=== PATIENT | female | born 1965 | race Caucasian/White ===

== ENCOUNTER 2022-07-13 13:52 | Emergency (ER) | payer MEDICAID, SELFPAY ==
--- NOTE | ~2022-07-13 | XR_ITS ---
EXAMINATION: XR CHEST CLINICAL INFORMATION: SOB and cough COMPARISON: None available. TECHNIQUE: 2 views of the chest were obtained. FINDINGS: No significant abnormality is noted involving the heart, lungs, mediastinum, bony thorax or soft tissues. XR/XR chest 2V IMPRESSION: Unremarkable examination.
[2022-07-13 14:16] VITALS: BP 140/95; PULSE 106; RESP 19; TEMP 36.6; O2SAT 97; BMI 42.3
--- NOTE | 2022-07-13 14:17 | ED_ITS ---
HPI - SOB/Dyspnea General Chief Complaint: Upper Respiratory Symptoms <SHEILA Dorsey - Last Filed: 07/13/22 14:20> Stated Complaint: Cough/SOB <SHEILA Dorsey - Last Filed: 07/13/22 14:20> Time Seen by Provider: 07/13/22 15:12 <SHEILA Dorsey - Last Filed: 07/13/22 14:20> Source: patient and commissioning editor <Jodie Zamudio NP - Last Filed: 07/13/22 19:06> Mode of arrival: ambulatory <Jodie Zamudio NP - Last Filed: 07/13/22 19:06> Limitations: language barrier <Jodie Zamudio NP - Last Filed: 07/13/22 19:06> History of Present Illness HPI Narrative: 57-year-old female with a history of asthma who presents to the ER with 2 weeks of increasing cough, wheezing, shortness of breath despite taking 4 days of prednisone, using Flovent b.i.d., ProAir p.r.n., albuterol nebulizer. Patient denies any fevers, runny nose, sore throat, chest pain. No leg swelling or leg pain. Patient moved here from [place] 2 months ago and does not have a primary care doctor here. Patient denies any previous history of hospitalizations or admissions for asthma <Jodie Zamudio NP - Last Filed: 07/13/22 19:06> Related Data Home Medications: Previous Rx's Medication Instructions Recorded prednisone 20 mg tablet 40 mg PO DAILY #8 tabs 07/13/22 <SHEILA Dorsey - Last Filed: 07/13/22 14:20> Allergies/Adverse Reactions: Allergies Allergy/AdvReac Type Severity Reaction Status Date / Time No Known Allergies Allergy Verified 07/13/22 14:15 [No Known Allergies*] <SHEILA Dorsey - Last Filed: 07/13/22 14:20> Review of Systems Review of Systems: Yes all other systems are reviewed and are negative <DARÍO Godoy Last Filed: 07/13/22 19:06> Constitutional: Constitutional: Reports no additional constitutional complaints, Denies body ache(s), Denies chills, Denies fever(s), Denies headache(s) and Denies weakness <Jodie Zamudio POLITICAL RESEARCH SCIENTIST - Last Filed: 07/13/22 19:06> Eyes: Eyes: Reports no additional eye complaints and Denies change in vision <Jodie Zamudio POLITICAL RESEARCH SCIENTIST - Last Filed: 07/13/22 19:06> ENT: Reports system reviewed and no additional complaints, except as docume nted, Denies dizziness, Denies headache(s), Denies nasal congestion, Denies nasal discharge and Denies neck pain <Jodie Zamudio POLITICAL RESEARCH SCIENTIST - Last Filed: 07/13/22 19:06> Cardiovascular: Cardiovascular: Reports no additional cardiovascular complaints, Denies chest pain, Denies leg edema and Reports dyspnea <Jodie Zamudio POLITICAL RESEARCH SCIENTIST - Last Filed: 07/13/22 19:06> Respiratory: Respiratory: Reports no additional respiratory complaints, Reports cough, Reports dyspnea and Reports wheezing <Jodie Zamudio POLITICAL RESEARCH SCIENTIST - Last Filed: 07/13/22 19:06> Gastrointestinal: Gastrointestinal: Reports no additional gastrointestinal complaints, Denies abdominal pain, Denies diarrhea, Denies nausea and Denies vomiting <Jodie Zamudio POLITICAL RESEARCH SCIENTIST - Last Filed: 07/13/22 19:06> Genitourinary: Genitourinary: Reports no additional female genitourinary complaints and Denies urinary incontinence <Jodie Zamudio POLITICAL RESEARCH SCIENTIST - Last Filed: 07/13/22 19:06> Musculoskeletal: Musculoskeletal: Reports no additional musculoskeletal complaints, Denies back pain, Denies arthralgias, Denies joint swelling, Denies neck pain, Denies numbness and Denies tingling <Jodie Zamudio POLITICAL RESEARCH SCIENTIST - Last Filed: 07/13/22 19:06> Integumentary/Breasts: Skin/Breast: Reports system reviewed and no additional complaints, except as docu and Denies rash <Jodie Zamudio POLITICAL RESEARCH SCIENTIST - Last Filed: 07/13/22 19:06> Neurologic: Reports system reviewed and no additional complaints, except as documented, Denies Abnormal speech present, Denies dizziness, Denies headache(s), Denies numbness, Denies tingling and Denies weakness <Jodie Zamudio NP - Last Filed: 07/13/22 19:06> Allergic/Immunologic: Allergic/Immunologic: Reports wheezing <Jodie Zamudio NP - Last Filed: 07/13/22 19:06> [facility] Past Medical History Attestation statement: The following information was validated with the patient. <Jodie Zamudio NP - Last Filed: 07/13/22 19:06> Source: old records reviewed and nursing notes reviewed <Jodie Zamudio NP - Last Filed: 07/13/22 19:06> Social History Social History: Social History Advance Directives: No Advance Directives Information Provided: Yes <SHEILA Dorsey - Last Filed: 07/13/22 14:20> Physical Exam Vital Signs: Vital Signs: Last Vital Signs Temp 98 F 07/13/22 14:16 Pulse 111 H 07/13/22 16:25 Resp 20 07/13/22 16:25 BP 140/95 H 07/13/22 14:16 Pulse Ox 97 07/13/22 14:16 O2 Del Method Room Air 07/13/22 14:16 BMI result Body Mass Index 42.3 <SHEILA Dorsey - Last Filed: 07/13/22 14:20> Vital Signs: Last Vital Signs Temp 98 F 07/13/22 14:16 Pulse 111 H 07/13/22 16:25 Resp 20 07/13/22 16:25 BP 140/95 H 07/13/22 14:16 Pulse Ox 97 07/13/22 14:16 O2 Del Method Room Air 07/13/22 14:16 BMI result Body Mass Index 42.3 <Jodie Zamudio NP - Last Filed: 07/13/22 19:06> Const: General: cooperative, healthy appearing, comfortable and no acute distress <Jodie Zamudio NP - Last Filed: 07/13/22 19:06> Orientation/consciousness: patient oriented x3 <Jodie Zamudio NP - Last Filed: 07/13/22 19:06> Limitations: no limitations <Jodie Zamudio NP - Last Filed: 07/13/22 19:06> HEENT: Head: Yes normal to inspection <Jodie Zamudio POLITICAL RESEARCH SCIENTIST - Last Filed: 07/13/22 19:06> Ears: hearing grossly normal bilaterally and TM's normal bilaterally <Jodie Zamudio POLITICAL RESEARCH SCIENTIST - Last Filed: 07/13/22 19:06> General nose exam: Normal external nose present <Jodie Zamudio POLITICAL RESEARCH SCIENTIST - Last Filed: 07/13/22 19:06> Face and sinus: Yes normal facial exam <Jodie Zamudio, POLITICAL RESEARCH SCIENTIST - Last Filed: 07/13/22 19:06> Mouth: Normal oral and palatal mucosa present <Jodie Zamudio POLITICAL RESEARCH SCIENTIST - Last Filed: 07/13/22 19:06> Throat: Yes posterior oropharynx normal, Yes tonsils normal and Yes uvula midline <Jodie Zamudio, POLITICAL RESEARCH SCIENTIST - Last Filed: 07/13/22 19:06> Eyes: General: appearance normal, both eyes and all related structures <Jodie Zamudio POLITICAL RESEARCH SCIENTIST - Last Filed: 07/13/22 19:06> Pupils: Equal, round and reactive pupils present <Jodie Zamudio POLITICAL RESEARCH SCIENTIST - Last Filed: 07/13/22 19:06> Neck: Neck: Yes normal visual inspection, Yes full ROM, Yes no lymphadenopathy and Yes no meningeal signs <Jodie Zamudio POLITICAL RESEARCH SCIENTIST - Last Filed: 07/13/22 19:06> Chest: Chest palpation & inspection: normal inspection of the chest <Jodie Zamudio POLITICAL RESEARCH SCIENTIST - Last Filed: 07/13/22 19:06> Resp: Other: Inspiratory and expiratory wheezing throughout <Jodie Zamudio POLITICAL RESEARCH SCIENTIST - Last Filed: 07/13/22 19:06> Effort & Inspection: normal respiratory effort <Jodie Zamudio POLITICAL RESEARCH SCIENTIST - Last Filed: 07/13/22 19:06> Cardio: Rate: regular rate <Jodie Zamudio POLITICAL RESEARCH SCIENTIST - Last Filed: 07/13/22 19:06> Rhythm: regular rhythm <Jodie Zamudio POLITICAL RESEARCH SCIENTIST - Last Filed: 07/13/22 19:06> Peripheral pulses: Peripheral pulses 2+ throughout <Jodieeileen Zamudio POLITICAL RESEARCH SCIENTIST - Last Filed: 07/13/22 19:06> GI: Inspection: Yes normal to inspection <Jodie Zamudio POLITICAL RESEARCH SCIENTIST - Last Filed: 07/13/22 19:06> Palpation (GI): Soft to palpation and nontender <Jodie Robb, POLITICAL RESEARCH SCIENTIST - Last Filed: 07/13/22 19:06> Auscultation: normal bowel sounds <Jodie Robb, POLITICAL RESEARCH SCIENTIST - Last Filed: 07/13/22 19:06> Back/Spine/Pelvis: Thoracic/Lumbar Spine: thoracic and lumbar spine normal to inspection <Jodie Robb, POLITICAL RESEARCH SCIENTIST - Last Filed: 07/13/22 19:06> Skin: General skin exam: no rashes or lesions noted <Jodie Robb, POLITICAL RESEARCH SCIENTIST - Last Filed: 07/13/22 19:06> Neuro: General: patient oriented x3, no meningeal signs, no focal motor deficits and normal sensation to monofilament <Jodieeileen Zamudio POLITICAL RESEARCH SCIENTIST - Last Filed: 07/13/22 19:06> Cranial nerves: Yes Equal, round and reactive pupils present <Jodie Robb, POLITICAL RESEARCH SCIENTIST - Last Filed: 07/13/22 19:06> Cognition (Neuro): normal cognition <Jodieeileen Zamudio, POLITICAL RESEARCH SCIENTIST - Last Filed: 07/13/22 19:06> Speech: No Abnormal speech present <Jodieeileen Zamudio, POLITICAL RESEARCH SCIENTIST - Last Filed: 07/13/22 19:06> Gait exam (Neuro): Normal gait present <Jodieeileen Zamudio, POLITICAL RESEARCH SCIENTIST - Last Filed: 07/13/22 19:06> Motor exam (neuro): 5/5 motor strength present throughout <Jodie Robb, POLITICAL RESEARCH SCIENTIST - Last Filed: 07/13/22 19:06> Extrem: General: Yes normal to inspection, Yes no pedal edema and Yes no calf tenderness <Jodie Robb, POLITICAL RESEARCH SCIENTIST - Last Filed: 07/13/22 19:06> Course Course Course Narrative: RME - 57 yo Trinid[place] speaking female with history of asthma who presents to the ER for evaluation of 8 days of SOB, wheezing, cough and chest pains. Chest pain is reproducible. Worse with coughing and deep breaths. Has been using her neb machine at home with no improvement. She was seen at the [facility] on 07/05 and prescribed prednisone. SpO2 98% in triage and speaking in complete sentences. She has expiratory wheezing throughout all lung duncan. Plan: CXR, EKG, COVID swab. breathing treatment, steroids and reassess. <SHEILA Dorsey - Last Filed: 07/13/22 14:20> Reevaluation(s) Reevaluation #1: 1715-blood sugar 412. No evidence of DKA. Patient takes metformin 1000 mg daily. Likely secondary to recent prednisone use. Will give patient IV fluids, 5 units of IV insulin and reassess <Jodie Zamudio NP - Last Filed: 07/13/22 19:06> Reevaluation #2: 1900-patient reports feeling improved. Sugar now 300s. Patient ambulated with pulse ox with greater 98%. Lungs are improved throughout. Patient has 60 mg of prednisone left at home. I recommend she take this tomorrow and then will give additional course of prednisone. Patient is on a 1000 mg of metformin daily. She may need a higher dose of metformin while she is taking the prednisone due to high hyperglycemia. Patient reports she has plenty of metformin at home and does not want a new prescription. She will increase her dose to 1000 mg twice daily for next 7 days and ankle back to her 1000 mg daily. This was all discussed with the nailhead operator. We reviewed worrisome signs and symptoms of when to return to the emergency room. Comfortable plan for discharge home. <Jodie Zamudio NP - Last Filed: 07/13/22 19:06> Medications Administered Discontinued Medications Generic Name Dose Route Start Last Admin Trade Name Freq PRN Reason Stop Dose Admin Albuterol Sulfate 10 mg 07/13/22 14:20 07/13/22 15:08 Albuterol Sulfate (0.083%) 2.5 Mg/3 Ml Vial.Neb INHALE 07/13/22 14:21 10 mg ONCE ONE Administration Albuterol Sulfate 5 mg 07/13/22 16:03 07/13/22 16:24 Albuterol Sulfate (0.083%) 2.5 Mg/3 Ml Vial.Neb INHALE 07/13/22 16:04 5 mg ONCE ONE Administration Magnesium Sulfate 2 gm in 50 mls @ 25 mls/hr 07/13/22 16:03 07/13/22 17:54 Magnesium Sulfate/H2o IV 07/13/22 18:02 Infused ONCE ONE Infusion Sodium Chloride 1,000 mls @ 999 mls/hr 07/13/22 16:45 07/13/22 17:53 Ns IV 07/13/22 17:45 Infused .Q1H1M STA Infusion Insulin Human Regular 5 unit 07/13/22 16:45 07/13/22 17:00 Insulin Regular, Human 100 Unit/Ml 3 Ml Vial IVPUSH 07/13/22 16:46 5 unit ONCE ONE Administration Methylprednisolone Sodium Succinate 125 mg 07/13/22 16:03 07/13/22 16:17 Methylprednisolone Sod Succ 125 Mg/2 Ml Vial IVPUSH 07/13/22 16:04 125 mg ONCE ONE Administration <SHEILA Dorsey - Last Filed: 07/13/22 14:20> Medications Administered Discontinued Medications Generic Name Dose Route Start Last Admin Trade Name Gunnarq PRN Reason Stop Dose Admin Albuterol Sulfate 10 mg 07/13/22 14:20 07/13/22 15:08 Albuterol Sulfate (0.083%) 2.5 Mg/3 Ml Vial.Neb INHALE 07/13/22 14:21 10 mg ONCE ONE Administration Albuterol Sulfate 5 mg 07/13/22 16:03 07/13/22 16:24 Albuterol Sulfate (0.083%) 2.5 Mg/3 Ml Vial.Neb INHALE 07/13/22 16:04 5 mg ONCE ONE Administration Magnesium Sulfate 2 gm in 50 mls @ 25 mls/hr 07/13/22 16:03 07/13/22 17:54 Magnesium Sulfate/H2o IV 07/13/22 18:02 Infused ONCE ONE Infusion Sodium Chloride 1,000 mls @ 999 mls/hr 07/13/22 16:45 07/13/22 17:53 Ns IV 07/13/22 17:45 Infused .Q1H1M STA Infusion Insulin Human Regular 5 unit 07/13/22 16:45 07/13/22 17:00 Insulin Regular, Human 100 Unit/Ml 3 Ml Vial IVPUSH 07/13/22 16:46 5 unit ONCE ONE Administration Methylprednisolone Sodium Succinate 125 mg 07/13/22 16:03 07/13/22 16:17 Methylprednisolone Sod Succ 125 Mg/2 Ml Vial IVPUSH 07/13/22 16:04 125 mg ONCE ONE Administration <Jodie Zamudio NP - Last Filed: 07/13/22 19:06> Medical Decision Making Medical Decision Making [facility] Narrative: 57-year-old female here with asthma symptoms the last 2 weeks despite being on prednisone, using Flovent, ProAir and albuterol nebulizer at home. Patient received 10 mg albuterol prior to my assess Patient with continued inspiratory and expiratory wheezing throughout w/ tachypnea but no hypoxia. Will give Solu-Medrol 125 mg, magnesium 2 g, repeat albuterol nebulizer <Jodie Zamudio NP - Last Filed: 07/13/22 19:06> Differential Diagnosis Differential Diagnoses: The differential diagnosis associated with the presentation includes <Jodie Zamudio NP - Last Filed: 07/13/22 19:06> Asthma exacerbation Less likely a PE, ACS, pneumonia <Jodie Zamudio NP - Last Filed: 07/13/22 19:06> Lab Data [facility] Lab Attestation statement: I reviewed the patient's lab results. <Jodie Zamudio NP - Last Filed: 07/13/22 19:06> Result Diagrams: 07/13/22 16:16 07/13/22 16:16 <SHEILA Dorsey - Last Filed: 07/13/22 14:20> Labs: Lab Results 07/13/22 07/13/22 07/13/22 Range/Units 14:27 16:16 16:16 WBC 9.2 (4.8-10.8) X10*3/uL RBC 5.21 (4.20-5.50) X10*6/uL Hgb 14.0 (12.0-16.0) g/dl Hct 43.3 (37.0-47.0) % MCV 83.1 (80.0-98.0) fL MCH 26.9 L (27.0-33.0) pg MCHC 32.3 (31.0-35.0) g/dl RDW 12.6 (11.0-16.0) % Plt Count 282 (160-400) X10*3/uL MPV 11.1 (9.4-12.3) fL Immature Gran % (Auto) 0.4 (0.0-0.4) % Neut % (Auto) 43.7 L (45-73) % Lymph % (Auto) 49.6 H (20-40) % [place] % (Auto) 5.2 (2-11) % Eos % (Auto) 0.8 (0-4) % Baso % (Auto) 0.3 (0-2) % Lymph # (Auto) 4.6 (1.2-4.9) X10*3/uL [place] # (Auto) 0.5 (0.1-1.2) X10*3/uL Eos # (Auto) 0.1 (0.0-0.4) X10*3/uL Baso # (Auto) 0.0 (0.0-0.2) X10*3/uL Abs Immat Gran (auto) 0.04 H (0.00-0.03) X10*3/uL Absolute Neuts (auto) 4.0 (2.0-8.3) x10*3/uL Absolute Nucleated RBC 0.000 (0.0-0.012) X10*3/uL Nucleated RBC % (auto) 0.0 (0.0-0.2) /100WBC Sodium 138 (135-145) mmol/L Potassium 3.3 (3.3-5.1) mmol/L Chloride 95 L (96-108) mmol/L Carbon Dioxide 25 (22-29) mmol/L Anion Gap 21 H (12-20) BUN 20 H (9-16) mg/dL Creatinine 1.12 (0.5-1.4) mg/dL Estim Creat Clear Calc 41.2 Estimated GFR 50 POC Glucose (60-115) mg/dL Random Glucose 412 H* (60-115) mg/dL Calcium 10.0 (8.4-10.2) mg/dL COVID-19 (GEOFF) Negative (Negative) COVID-19 Clin Com See Note 07/13/22 Range/Units 17:49 WBC (4.8-10.8) X10*3/uL RBC (4.20-5.50) X10*6/uL Hgb (12.0-16.0) g/dl Hct (37.0-47.0) % MCV (80.0-98.0) fL MCH (27.0-33.0) pg MCHC (31.0-35.0) g/dl RDW (11.0-16.0) % Plt Count (160-400) X10*3/uL MPV (9.4-12.3) fL Immature Gran % (Auto) (0.0-0.4) % Neut % (Auto) (45-73) % Lymph % (Auto) (20-40) % [place] % (Auto) (2-11) % Eos % (Auto) (0-4) % Baso % (Auto) (0-2) % Lymph # (Auto) (1.2-4.9) X10*3/uL [place] # (Auto) (0.1-1.2) X10*3/uL Eos # (Auto) (0.0-0.4) X10*3/uL Baso # (Auto) (0.0-0.2) X10*3/uL Abs Immat Gran (auto) (0.00-0.03) X10*3/uL Absolute Neuts (auto) (2.0-8.3) x10*3/uL Absolute Nucleated RBC (0.0-0.012) X10*3/uL Nucleated RBC % (auto) (0.0-0.2) /100WBC Sodium (135-145) mmol/L Potassium (3.3-5.1) mmol/L Chloride (96-108) mmol/L Carbon Dioxide (22-29) mmol/L Anion Gap (12-20) BUN (9-16) mg/dL Creatinine (0.5-1.4) mg/dL Estim Creat Clear Calc Estimated GFR POC Glucose 311 H (60-115) mg/dL Random Glucose (60-115) mg/dL Calcium (8.4-10.2) mg/dL COVID-19 (GEOFF) (Negative) COVID-19 Clin Com <SHEILA Dorsey - Last Filed: 07/13/22 14:20> Lab Results 03/29/23 03/29/23 03/29/23 Range/Units 14:27 16:16 16:16 WBC 9.2 (4.8-10.8) X10*3/uL RBC 5.21 (4.20-5.50) X10*6/uL Hgb 14.0 (12.0-16.0) g/dl Hct 43.3 (37.0-47.0) % MCV 83.1 (80.0-98.0) fL MCH 26.9 L (27.0-33.0) pg MCHC 32.3 (31.0-35.0) g/dl RDW 12.6 (11.0-16.0) % Plt Count 282 (160-400) X10*3/uL MPV 11.1 (9.4-12.3) fL Immature Gran % (Auto) 0.4 (0.0-0.4) % Neut % (Auto) 43.7 L (45-73) % Lymph % (Auto) 49.6 H (20-40) % [place] % (Auto) 5.2 (2-11) % Eos % (Auto) 0.8 (0-4) % Baso % (Auto) 0.3 (0-2) % Lymph # (Auto) 4.6 (1.2-4.9) X10*3/uL [place] # (Auto) 0.5 (0.1-1.2) X10*3/uL Eos # (Auto) 0.1 (0.0-0.4) X10*3/uL Baso # (Auto) 0.0 (0.0-0.2) X10*3/uL Abs Immat Gran (auto) 0.04 H (0.00-0.03) X10*3/uL Absolute Neuts (auto) 4.0 (2.0-8.3) x10*3/uL Absolute Nucleated RBC 0.000 (0.0-0.012) X10*3/uL Nucleated RBC % (auto) 0.0 (0.0-0.2) /100WBC Sodium 138 (135-145) mmol/L Potassium 3.3 (3.3-5.1) mmol/L Chloride 95 L (96-108) mmol/L Carbon Dioxide 25 (22-29) mmol/L Anion Gap 21 H (12-20) BUN 20 H (9-16) mg/dL Creatinine 1.12 (0.5-1.4) mg/dL Estim Creat Clear Calc 41.2 Estimated GFR 50 POC Glucose (60-115) mg/dL Random Glucose 412 H* (60-115) mg/dL Calcium 10.0 (8.4-10.2) mg/dL COVID-19 (GEOFF) Negative (Negative) COVID-19 Clin Com See Note 07/13/22 Range/Units 17:49 WBC (4.8-10.8) X10*3/uL RBC (4.20-5.50) X10*6/uL Hgb (12.0-16.0) g/dl Hct (37.0-47.0) % MCV (80.0-98.0) fL MCH (27.0-33.0) pg MCHC (31.0-35.0) g/dl RDW (11.0-16.0) % Plt Count (160-400) X10*3/uL MPV (9.4-12.3) fL Immature Gran % (Auto) (0.0-0.4) % Neut % (Auto) (45-73) % Lymph % (Auto) (20-40) % [place] % (Auto) (2-11) % Eos % (Auto) (0-4) % Baso % (Auto) (0-2) % Lymph # (Auto) (1.2-4.9) X10*3/uL [place] # (Auto) (0.1-1.2) X10*3/uL Eos # (Auto) (0.0-0.4) X10*3/uL Baso # (Auto) (0.0-0.2) X10*3/uL Abs Immat Gran (auto) (0.00-0.03) X10*3/uL Absolute Neuts (auto) (2.0-8.3) x10*3/uL Absolute Nucleated RBC (0.0-0.012) X10*3/uL Nucleated RBC % (auto) (0.0-0.2) /100WBC Sodium (135-145) mmol/L Potassium (3.3-5.1) mmol/L Chloride (96-108) mmol/L Carbon Dioxide (22-29) mmol/L Anion Gap (12-20) BUN (9-16) mg/dL Creatinine (0.5-1.4) mg/dL Estim Creat Clear Calc Estimated GFR POC Glucose 311 H (60-115) mg/dL Random Glucose (60-115) mg/dL Calcium (8.4-10.2) mg/dL COVID-19 (GEOFF) (Negative) COVID-19 Clin Com <Jodie Zamudio NP - Last Filed: 07/13/22 19:06> Independent Interpretation I performed an independent interpretation of an: Plain X-Ray <Jodie Zamudio NP - Last Filed: 07/13/22 19:06> Interpretation: Independently reviewed the x-ray and agree with radiologist's report I independently reviewed EKG which shows normal sinus rhythm with a rate of 100, normal OH, normal QRS, normal QT <Jodie Zamudio NP - Last Filed: 07/13/22 19:06> Radiology Impression Discussion of test interpretation with radiology: I have reviewed the radiologist's reading. <Jodie Zamudio NP - Last Filed: 07/13/22 19:06> Radiologist Impression: [place] [id number] XRay Report Signed Patient: Bel Dunn MR#: [id number] : 1965 Acct:[id number] Age/Sex: 57 / F ADM Date: 07/13/22 Loc: .ED Attending Dr: Ordering Physician: Bell Galicia Date of Service: 07/13/22 Procedure(s): XR chest 2V Accession Number(s): [id number] cc: Bell Galicia~ EXAMINATION: XR CHEST CLINICAL INFORMATION: SOB and cough COMPARISON: None available. TECHNIQUE: 2 views of the chest were obtained. FINDINGS: No significant abnormality is noted involving the heart, lungs, mediastinum, bony thorax or soft tissues. XR/XR chest 2V IMPRESSION: Unremarkable examination. <Jodie Zamudio NP - Last Filed: 07/13/22 19:06> Discharge Plan Discharge Clinical Impression: Asthma exacerbation, Hyperglycemia <SHEILA Dorsey - Last Filed: 07/13/22 14:20> Patient Disposition: Home, Self-Care <SHEILA Dorsey - Last Filed: 07/13/22 14:20> Instructions: Asthma (DC), Diabetic Hyperglycemia (ED) <SHEILA Dorsey - Last Filed: 07/13/22 14:20> Additional Instructions: Increase your dose of metformin to 1000mg twice daily for 7 days. Tomorrow take the three pills of prednisone you have left. The day after turkey picker the new prescription and take all of these pills. Continue your asthma medications at home. Return for worsening symptoms. Aumente thurman dosis de metformina a 1000 mg dos veces al d?a speedy 7 d?as. Ma?les vidhi las jonathan pastillas de prednisona que te quedan. Al d?a siguiente, recoja la nueva receta y tome todas estas pastillas. Contin?e con iker medicamentos para el asma en casa. Regresar por empeoramiento de los s?ntomas. <SHEILA Dorsey - Last Filed: 07/13/22 14:20> Prescriptions: New prednisone 20 mg tablet 40 mg PO DAILY Qty: 8 0RF <SHEILA Dorsey - Last Filed: 07/13/22 14:20> Referrals: [facility] [Primary Care Provider] - 1 week <SHEILA Dorsey - Last Filed: 07/13/22 14:20> Print Language: Trinidadian <SHEILA Dorsey Last Filed: 07/13/22 14:20>
--- NOTE | 2022-07-13 14:18 | ECG_ITS ---
Test Reason : cp Blood Pressure : / mmHG Vent. Rate : 100 BPM Atrial Rate : 100 BPM P-R Int : 148 ms QRS Dur : 084 ms QT Int : 356 ms P-R-T Axes : 075 030 062 degrees QTc Int : 459 ms Normal sinus rhythm Right atrial enlargement Borderline ECG No previous ECGs available Referred By: Bell Galicia Electronically Signed By:BENY AKERS
[2022-07-13 14:57] LABS: COVID-19 Test Negative (Negative); IDNOW Serial# 55D5AD1C
[2022-07-13] MEDS: Albuterol Sulfate (0.083%) 2.5 MG/3 ML VIAL.NEB 10 MG INHALE (15:08)
[2022-07-13 15:10] VITALS: PULSE 91; RESP 18; O2SAT 98
[2022-07-13] MEDS: methylPREDNISolone Sod Succ 125 MG/2 ML VIAL IVPUSH (16:17)
[2022-07-13] MEDS: Magnesium Sulfate/H2O 2 GM/50 ML PIGGYBACK IV (16:17)
[2022-07-13] MEDS: Albuterol Sulfate (0.083%) 2.5 MG/3 ML VIAL.NEB 5 MG INHALE (16:24)
[2022-07-13 16:25] VITALS: PULSE 111; RESP 20; O2SAT 99
[2022-07-13 16:26] LABS: MANUAL DIFF FLAG NO
[2022-07-13 16:28] LABS: Basophils Percent Auto 0.3 % (0-2); Eosinophils Absolute Auto 0.1 X10*3/uL (0.0-0.4); Eosinophils Percent Auto 0.8 % (0-4); Hematocrit 43.3 % (37.0-47.0); Imm Gran Abs Auto 0.04 X10*3/uL (0.00-0.03); Imm Gran Pct Auto 0.4 % (0.0-0.4); Lymphocytes Absolute Auto 4.6 X10*3/uL (1.2-4.9); Lymphocytes Percent Auto 49.6 % (20-40); Mean Corpuscular HGB Conc 32.3 g/dl (31.0-35.0); Mean Corpuscular Hemoglobin 26.9 pg (27.0-33.0); Mean Corpuscular Volume 83.1 fL (80.0-98.0); Mean Platelet Volume 11.1 fL (9.4-12.3); Monocytes Absolute Auto 0.5 X10*3/uL (0.1-1.2); Monocytes Percent Auto 5.2 % (2-11); Neutrophils Percent Auto 43.7 % (45-73); Platelet Count 282 X10*3/uL (160-400); Red Blood Count 5.21 X10*6/uL (4.20-5.50); Red Cell Distribution Width 12.6 % (11.0-16.0); White Blood Count 9.2 X10*3/uL (4.8-10.8)
[2022-07-13 16:43] LABS: Anion Gap 21 (12-20); Blood Urea Nitrogen 20 mg/dL (9-16); Carbon Dioxide 25 mmol/L (22-29); Chloride 95 mmol/L (96-108); Creatinine Clr Calc Pharmacy 41.2; Estimated Glomerular Filt Rate 50; Glucose Random 412 mg/dL (60-115); Potassium 3.3 mmol/L (3.3-5.1); Sodium 138 mmol/L (135-145)
[2022-07-13] MEDS: Insulin Regular, Human 100 UNIT/ML 3 ML VIAL IVPUSH (17:00)
[2022-07-13] MEDS: 0.9 % Sodium Chloride 1,000 ML 999 ML IV (17:02)
--- NOTE | 2022-07-13 17:06 | PC.NURSE ---
Critical glucose called to ED by lab. Result of 412, reported to provider and pt. subsequently medicate per MAR. Pt. resting in bed at this time with NS running per MAR. Pt. under no apparent distress.
[2022-07-13 17:52] LABS: Glucose, Whole Blood 311 mg/dL (60-115)
--- NOTE | 2022-07-13 18:06 | PC.NURSE ---
spoke with pt with institutional research director at bedside. pt sts she has no pain at this time, stated that she feels better after receiving meds via neb/iv, sts that she still feels a little congested but improved overall. call mcmahon within reach, will update provider
--- NOTE | 2022-07-13 18:23 | PC.NURSE ---
pt ambulatory O2 saturation 98%-100% max heart rate 117bpm- provider aware
== END 2022-07-13 19:10 | disposition home or self-care (01) ==
PROVIDERS: Nurse Practitioner Family; Physician Assistant; Emergency Provider Emergency Medicine
DX: J45.901 Unspecified asthma with (acute) exacerbation (principal); R05.9 Cough, unspecified; R06.02 Shortness of breath; R07.89 Other chest pain; E11.65 Type 2 diabetes mellitus with hyperglycemia; Z20.822 Contact with and (suspected) exposure to COVID-19; Z20.828 Contact with and (suspected) exposure to other viral communicable diseases; Z79.899 Other long term (current) drug therapy; Z79.4 Long term (current) use of insulin
CPT/HCPCS: 36415; 71046; 80048; 82947; 85025; 87635; 93005; 94640; 96365; 96375; 99284; J2930; J3475